=== PATIENT | male | born 1990 | race Caucasian/White ===

== ENCOUNTER 2018-02-02 17:03 | Emergency (ER) | payer BC ==
[2018-02-02 17:16] VITALS: BP 120/76; PULSE 62; TEMP 98.1; BMI 23.0
--- NOTE | 2018-02-02 17:30 | PDOC ---
History of Present Illness - General Chief Complaint: Chest Pain Stated Complaint: CHEST PAIN History Source: Patient Exam Limitations: No Limitations - History of Present Illness Initial Comments: 02/02/18 17:25 27-year-old male no past medical history here today complaining of right arm paresthesia followed by sudden anxiety racing heartbeat difficult breathing and chest pain. Patient states he was riding in a car at the time no current symptoms no nausea no vomiting no fever no chills patient reports he was smoking weed for the first time in a year just prior to this event 02/02/18 17:26 Past History - Past Medical History Allergies/Adverse Reactions: Allergies Allergy/AdvReac Type Severity Reaction Status Date / Time No Known Allergies Allergy Verified 02/02/18 17:04 Home Medications: Ambulatory Orders NK [No Known Home Medication] 02/02/18 COPD: No - Suicide/Smoking/Psychosocial Hx Smoking History: Former smoker Have you smoked in the past 12 months: Yes Number of Cigarettes Smoked Daily: 20 Information on smoking cessation initiated: Yes 'Breaking Loose' booklet given: 02/02/18 Review of Systems - Review of Systems Constitutional: No: Chills, Diaphoresis, Fever Respiratory: No: Cough, Orthopnea ABD/GI: No: Abdominal Distended : No: See HPI, Burning, Dysuria Musculoskeletal: No: Back Pain Integumentary: No: Bruising Neurological: Yes: Numbness, Paresthesia. No: Headache All Other Systems: Reviewed and Negative *Physical Exam - Vital Signs Last Vital Signs Temp Pulse Resp BP Pulse Ox 98.1 F 62 18 120/76 99 02/02/18 17:03 02/02/18 17:03 02/02/18 17:03 02/02/18 17:03 02/02/18 17:03 - Physical Exam General Appearance: Yes: Appropriately Dressed Neck: positive: Trachea midline Respiratory/Chest: positive: Lungs Clear, Normal Breath Sounds Cardiovascular: positive: Regular Rhythm, Regular Rate, S1, S2 Gastrointestinal/Abdominal: positive: Normal Bowel Sounds, Flat, Soft. negative : Tender Musculoskeletal: positive: Normal Inspection. negative: CVA Tenderness, CVA Tenderness (R) Extremity: positive: Normal Capillary Refill, Normal Inspection, Normal Range of Motion Integumentary: positive: Dry, Warm Neurologic: positive: matlab developer II-XII NML intact, Fully Oriented, Alert, Motor Strength 5/5 Heart Score/ECG Review #1 General ECG Interpretation: Sinus Rhythm, Normal Rate (56), Normal Intervals, No acute ischemic changes Medical Decision Making - Medical Decision Making 02/02/18 17:27 27-year-old complaining of right arm paresthesia followed by chest pain shortness breath and palpitations. Patient does report we'd use just prior differential diagnosis includes dysrhythmia, reaction to drug and tox, pneumothorax or other infection is considered. Plan EKG chest x-ray and reassurance patient has a normal neurological exam at this point EKG is unremarkable pending chest x-ray if normal will DC home follow up with primary doctor pt refused cxr 02/02/18 17:35 *DC/Admit/Observation/Transfer Diagnosis at time of Disposition: Drug use, Anxiety - Discharge Dispostion Condition at time of disposition: Improved Decision to Admit order: No - Referrals - Patient Instructions Printed Discharge Instructions: Anxiety and Panic Attacks (Alternative Therapy) Additional Instructions: Avoid marijuana use as it can cause symptoms of shortness of breath paresthesia and anxiety. Follow-up the primary care doctor return for any shortness of breath recurrent chest pain or any concerns. Your EKG was normal - Post Discharge Activity
== END 2018-02-02 17:40 | disposition home or self-care (01) ==
LOC: FER 17:03
DX: F12.90 Cannabis use, unspecified, uncomplicated (principal); F41.9 Anxiety disorder, unspecified; Z87.891 Personal history of nicotine dependence
CPT/HCPCS: 99283-25